=== PATIENT | female | born 1980 | race Caucasian/White ===

== ENCOUNTER → 2017-05-09 | Outpatient (CLI) | payer OTHER ==
[~2017-05-09] MED LIST: LORTAB 5/500 501 TAB PO
[2017-05-10 08:36] LABS: RA Latex Turbid. <10.0 IU/mL (0.0-13.9)
[2017-05-11 16:36] LABS: Antinuclear Antibodies, IFA Negative (.)
== END ==
LOC: LAB 08:41
PROVIDERS: Nurse Practitioner Family
DX: M79.7 Fibromyalgia (principal); M25.50 Pain in unspecified joint

== ENCOUNTER → 2017-05-26 | Outpatient (CLI) | payer OTHER ==
--- NOTE | 2017-05-26 13:25 | RADIOLOGY REPORT PS360 ---
LUMBAR SPINE 5 VIEWS COMPARISON: None HISTORY: Right-sided sciatica TECHNIQUE: AP lateral and oblique views and spot view lumbosacral junction FINDINGS: There is minor diffuse levoscoliotic curvature between T11 and L5. All lumbar vertebrae appear intact and disc spaces are well maintained throughout. There is no pars defect. SI joints are normal. There are apparent tubal ligation clips seen in the central portion of the pelvis IMPRESSION: Minor levoscoliotic curvature, no other significant abnormality noted.
== END ==
LOC: RAD 12:19
DX: M54.41 Lumbago with sciatica, right side (principal); R20.0 Anesthesia of skin